=== PATIENT | male | born 1995 | race African-American/Black ===

== ENCOUNTER 2021-06-23 19:35 | Emergency (ER) | payer BC, MEDICAID ==
[~2021-06-23] VITALS: Ht 182.9 cm; Wt 77.1 kg
[2021-06-23 19:41] VITALS: BP_SYST 142
[2021-06-23] MEDS ORDERED: IBUP-1969 PO (20:45)
[2021-06-23] MEDS ORDERED: CYCLOBENZAPRINE HCL 10 MG TABLET (FLEXERIL) PO ONE (20:45)
[2021-06-23] MEDS ORDERED: CYCL10TA24 PO (20:45)
[2021-06-23 21:52] VITALS: BP_SYST 142
== END 2021-06-23 21:52 | disposition home or self-care (01) ==
LOC: SED 19:35
DX: M43.6 Torticollis (principal)
CPT/HCPCS: 72040-TC; 99283